=== PATIENT | female | born 1955 | race Caucasian/White ===

== ENCOUNTER 2021-12-03 19:41 | Emergency (ER) | payer MEDICARE, MEDICAID, SELFPAY ==
--- NOTE | ~2021-12-03 | CT_ITS ---
EXAMINATION: CT abdomen pelvis w con DATE: 12/04/2021 00:58 INDICATION: Lower abdominal pain with vaginal bleeding. TECHNIQUE: Computed tomography (CT) of the abdomen and pelvis was performed with 100 cc Omnipaque 300 intravenous contrast. The dose-length product was 1463.97 mGy-cm. Automated exposure control and ite rative reconstruction technique were employed. COMPARISON: None. FINDINGS: Lung bases are unremarkable. No significant pleural or pericardial effusion. Heart size is normal. Mild atherosclerosis. No lymphadenopathy. There is evidence for pelvic floor relaxation. Fatt y infiltration of the liver. The spleen, pancreas, adrenal glands and kidneys are unremarkable. Gallb ladder is contracted. Nonobstructive bowel gas pattern. No evidence for diverticulitis. Mild lumbar s pondylosis. No free air or free fluid. There is laxity of the anterior abdominal wall musculature wit h small fat-containing umbilical hernia. IMPRESSION: 1. No acute abdominal abnormality. Reviewed, dictated and finalized at location A.
[2021-12-03 19:46] VITALS: BP 152/64; PULSE 88; RESP 16; TEMP 36.6; O2SAT 98
[2021-12-03 22:55] VITALS: BP 178/86; PULSE 92; RESP 16; TEMP 37; O2SAT 98
--- NOTE | 2021-12-03 23:07 | ED.GENADULT ---
HPI - General Adult General Chief complaint: Vaginal Bleeding Stated complaint: vag bleed x 1 month Time Seen by Provider: 12/03/21 22:47 History of Present Illness HPI narrative: 66-year-old female presenting to the emergency department for evaluation of vaginal bleeding that has been ongoing for approximately 1 month. Patient has had follow-up with [facility] during the month and has had an outpatient ultrasound. Patient does have additional follow-up scheduled on January [address] Allan. Today the patient was sitting on the toilet and she stated that she felt different patient suspects that she had onset of a panic attack because she felt her breathing increased and she felt very anxious. Patient did have some associated dizziness. Patient reports that the symptoms have begun to improve and she feels back to her baseline. Patient has been passing golf ball sized clots intermittently over the course of the last month. Patient did have some heavier bleeding earlier in the day but states that since arriving to the emergency department that she has no further bleeding. Patient denies any complaints at this time. Related Data Allergies Allergy/AdvReac Type Severity Reaction Status Date / Time No Known Allergies Allergy Mild Verified 12/03/21 22:57 Review of Systems Review of Systems: CONSTITUTIONAL: Denies fever, chills, or sweats. EYES: Denies visual changes, redness, or discharge. ENT: Denies rhinorrhea, congestion, sore throat, or otalgia. CARDIOVASCULAR: Denies chest pain, palpitations, or edema. RESPIRATORY: Denies cough or dyspnea. GASTROINTESTINAL: Denies abdominal pain, nausea, vomiting, or diarrhea. GENITOURINARY: See HPI SKIN: Denies rash or itching. MUSCULOSKELETAL: Denies back pain, joint pain, or myalgia. NEUROLOGIC: Denies headache, numbness, or weakness. PSYCHIATRIC: Resolved panic attack Exam Narrative: APPEARANCE: Well appearing, no pain, no distress, well-nourished. HEAD: normocephalic, atraumatic. EYES: PERRLA/EOMI, conjunctivae clear. NOSE: Normal no drainage NECK: Supple. No adenopathy, no masses. RESPIRATORY: Airway patent, respirations nonlabored. Clear to auscultation bilaterally, no rales, rhonchi, wheezing. CARDIOVASCULAR: Regular rate and rhythm without murmurs rubs or gallops. ABDOMINAL: Soft, nontender, nondistended, normal bowel sounds MUSCULOSKELETAL: Moves all extremities. Strength/ROM intact, No edema, No calf tenderness. NEURO: Alert. Cranial nerves II through XII intact. Grossly intact SKIN: Warm, dry. Normal Color PSYCHIATRIC: Normal affect/mood. Course Course Emergency Course: Patient's vitals are within normal limits. Patient is afebrile with no leukocytosis. Patient's hemoglobin is 11.8. INR is 1.1. CT scan showed no acute abnormality. Patient family review the results of the labs and imaging. Patient was encouraged to continue have close follow-up with [facility]. All question concerns were addressed. Patient was stable at time of discharge from the emergency department. Vital Signs Vital signs: Vital Signs Temperature 97.8 F 12/03/21 19:46 Pulse Rate 88 12/03/21 19:46 Respiratory Rate 16 12/03/21 19:46 Blood Pressure 152/64 H 12/03/21 19:46 Pulse Oximetry 98 12/03/21 19:46 Oxygen Delivery Room Air 12/03/21 19:46 Temperature 98.6 F 12/03/21 22:55 Pulse Rate 92 12/03/21 22:55 Respiratory Rate 16 12/03/21 22:55 Blood Pressure 178/86 H 12/03/21 22:55 Pulse Oximetry 98 12/03/21 22:55 Oxygen Delivery Room Air 12/03/21 19:46 Medical Decision Making Vital Signs Vital Signs: Vital Signs Temperature 97.8 F 12/03/21 19:46 Pulse Rate 88 12/03/21 19:46 Respiratory Rate 16 12/03/21 19:46 Blood Pressure 152/64 H 12/03/21 19:46 Pulse Oximetry 98 12/03/21 19:46 Oxygen Delivery Room Air 12/03/21 19:46 Temperature 98.6 F 12/03/21 22:55 Pulse Rate 92 12/03/21 22:55 Respiratory Rate 16 12/03/21 22:55 Blood Pressure
[2021-12-04 00:18] LABS: Basophils Percent Auto 0.4 % (0.2-1.2); Eosinophils Absolute Auto 0.1 K/mm3 (0-0.3); Eosinophils Percent Auto 1.4 % (0-4.4); Hematocrit 36.8 % (37.0-47.0); Hemoglobin 11.8 g/dL (12.0-15.0); Immature Granulocyte Absolute 0.03 K/mm3 (0.00-0.031); Immature Granulocyte Percent A 0.3 % (0-0.5); Lymphocytes Absolute Auto 2.57 K/mm3 (0.9-3.2); Lymphocytes Percent Auto 25.8 % (18.3-44.2); Mean Corpuscular HGB Conc 32.1 g/dl (32-36); Mean Corpuscular Volume 93.6 fl (80-100); Mean Platelet Volume 10.9 fl (7.4-10.4); Monocytes Absolute Auto 0.7 K/mm3 (0.1-0.6); Monocytes Percent Auto 6.5 % (2.6-8.5); Neutrophils Absolute Auto 6.5 K/mm3 (1.3-6.7); Neutrophils Percent Auto 65.6 % (45.5-73.1); Platelet Count Result 280 k/mm3 (150-375); Red Blood Count 3.93 M/mm3 (4.2-5.4)
[2021-12-04 00:19] LABS: Appearance Urine Clear (Clear); Bilirubin Urine Negative (Negative); Blood Urine Negative (Negative); Color Urine Yellow (Yellow); Glucose Urine UA Negative (Negative); Ketones Urine Trace mg/dL (Negative); Leukocyte Esterase Ur Trace LEU/UL (Negative); Nitrate Urine Negative (Negative); Protein Urine Negative (Negative); Urobilinogen Urine 0.2 mg/dL (<2.0); pH Urine 5.5 (5.0-9.0)
[2021-12-04 00:26] LABS: INR 1.1; Prothrombin Time 13.5 Seconds (11.1-14.7)
[2021-12-04 00:27] LABS: Partial Thromboplastin Time 22.9 SECONDS (22.3-36.8)
[2021-12-04 00:29] LABS: Alanine Aminotransferase 22 U/L (6-35); Albumin Level 4.5 g/dL (3.5-5.1); Alkaline Phosphatase 89 U/L (38-126); Anion Gap 8 mmol/L (8-16); Aspartate Amino Transferase 22 U/L (14-36); Bilirubin,Total 0.4 mg/dL (0.2-1.3); Blood Urea Nitrogen 19 mg/dL (7-17); Calcium 9.1 mg/dL (8.4-10.2); Carbon Dioxide 29 mmol/L (22-30); Chloride 101 mmol/L (98-107); Estimated CRCL calculation 59 ml/min; Estimated Glomerular Filt Rate 38; Glucose 97 mg/dL (65-110); Potassium 3.9 mmol/L (3.4-5.0); Sodium 138 mmol/L (137-145)
[2021-12-04 00:32] LABS: Mucus Urine Rare /lpf; RBC Urine 0-2 /hpf (0-2); Squamous Epithelial Cell Urine Rare /hpf (Few); WBC Urine 0-3 /hpf
[2021-12-04 00:45] LABS: Add Urine Microscopic? YES
[2021-12-04 03:01] VITALS: BP 161/54; PULSE 96; RESP 18; O2SAT 99
== END 2021-12-04 03:03 | disposition home or self-care (01) ==
PROVIDERS: Emergency Provider Emergency Medicine; PCP Family Medicine
DX: N93.9 Abnormal uterine and vaginal bleeding, unspecified (principal)
CPT/HCPCS: 36415; 51701; 74177; 80053; 81001; 85025; 85610; 85730; 86850; 86900; 86901; 99284; Q9967

== ENCOUNTER 2021-12-16 01:29 | Day surgery (SDC) | payer MEDICARE, MEDICAID, SELFPAY ==
[2021-12-10 11:23] VITALS: BMI 71.5
--- NOTE | 2021-12-10 11:40 | PC.NURSE ---
Report to the Outpatient Waiting Room, entrance under the green pavilion located off [facility], at time _1030 on date _12/16/21 . OR Time: 1230___. - You and your visitor will be asked a series of questions to screen for COVID 19 for your protection. - Only one visitor is allowed at this time. - The patient visitor is requested to leave or wait in car when not with patient. - A mask is required within the hospital. Patients may have clear liquids (water, carbonated beverages, clear teas, apple juice) until 3 hours prior to surgery (0930 AM) with a maximum of 20 ounces. - No food from midnight until time of surgery - Infants may have breast milk until 4 hours before surgery, formula 6 hours prior to surgery. - Children will be allowed to drink immediately following surgery. If applicable, please bring a bottle or sippy cup to assist with drinking. Juice, water, soda, and popsicles are readily available. For infants on formula, please bring formula the day of surgery. Pacifiers are allowed. Take the following medications with a SIP of water the morning of surgery: _INHALER, LEVOTHYROXINE_ Medications to discontinue per physician ___ALL VITAMINS AND SUPPLEMENTS 3 DAYS PRIOR TO SURGERY_ Date to take last dose 12/12/21 Please no make-up, nail zambian, hairspray, perfume, deodorant, or body powder the day of surgery. No jewelry (including any body piercings) or valuables the day of surgery, leave them at home. Please take a shower or bath the night before, or the morning of, surgery with an antibacterial soap. Wear comfortable, loose fitting clothing. Children are encouraged to wear pajamas. - Jewelry must be removed prior to entering the operating room. Rings and piercings that are not removed may be cut off. - The hospital will not accept responsibility for valuables. - Please leave all valuables, including medications, at home the day of surgery. If you are going home after surgery, a licensed day haul or farm charter bus driver must drive you home. - NO public transportation without another adult. - We recommend that an adult stay with you for 24 hours following discharge. - We also recommend that you do not drive, make important decision, drink alcoholic beverages, or take any drugs that were not prescribed by your health care provider for at least 24 hours after your discharge time. For Pediatric surgeries, we recommend two adults accompany the child home (only one inside the building at this time). Follow any additional instructions given to you from your surgeon. If you or anyone in your household have experienced Covid symptoms in the past week, please notify your surgeon or the nurse liaison at the phone number below for possible testing. Telephone instructions given to __PT'S DAUGHTER (GARRETT) and asked if any additional questions and then verbalized understanding. Patient advised to call surgeon office or pre surgery nurse liaison [phone] if any additional questions.
[2021-12-16] VITALS (9 sets, daily range): BP systolic 131–187; BP diastolic 63–91; PULSE 72–93; RESP 16–20; TEMP 36.2–37.1; O2SAT 99–100
--- NOTE | 2021-12-16 07:44 | PM.IMHP ---
H&P: HPI History of Present Illness Date/Time: 12/16/21 07:44 Chief Complaint: postmenopausal bleeding Narrative: Jayleen is a postmenopausal 66yo [id number] who presented to clinic for PMB. She reports that she has not stopped bleeding and has continued to have menstrual cycles. For the last couple months the bleeding has severely worsened; filling Depends w/ clots and bright red bleeding. She has been passing some clots as big as a golf ball. She denies any major cramping pains. She had an US at the beginning of the month showing a thickened endometrial strip measuring 9.3mm. She has HTN, arthritis with limited mobility due to morbid obesity, COPD/asthma, and hypothyroidism. Review of Systems Review of Systems: All systems reviewed & are unremarkable except as noted in HPI and below PMFSH Past Medical History Medical History (Updated 12/16/21 @ 07:46 by Tori Chiu MD) 1st MTP arthritis Asthma COPD (chronic obstructive pulmonary disease) Eczema High blood pressure Thyroid disease Social History Social History (Updated 12/09/21 @ 14:56 by Anny Randhawa MA) Smoking status: Never smoker Second hand tobacco smoke exposure: No Alcohol intake: never Substance use: never Substance use type: does not use Living arrangements: with family Additional living arrangements comments: PT LIVES WITH DAUGHTER - GARRETT Gender identity (if verbalized by the patient): Female Spiritual care concerns: No Meds Home Medications and Allergies Home Medications Medication Instructions Recorded Confirmed Type albuterol sulfate 2.5 mg/3 mL 2.5 mg inhalation Q6H 12/09/21 12/10/21 History (0.083 %) solution for nebulization hydrochlorothiazide 25 mg tablet 25 mg PO QAM 12/09/21 12/10/21 History levothyroxine 75 mcg tablet 75 mcg PO DAILY 12/09/21 12/10/21 History meloxicam 15 mg tablet 15 mg PO DAILY 12/09/21 12/10/21 History potassium chloride 10 mEq 10 meq PO DAILY 12/09/21 12/10/21 History capsule,extended release tramadol 50 mg tablet 50 mg PO Q6H PRN Pain 12/09/21 12/10/21 History ascorbic acid (vitamin C) 1,000 mg 1 g PO DAILY 12/10/21 12/10/21 History tablet (Vitamin C) cholecalciferol (vitamin D3) 50 50 mcg PO DAILY 12/10/21 12/10/21 History mcg (2,000 unit) chewable tablet iron 1 tab-cap DAILY 12/10/21 12/10/21 History Allergies Allergy/AdvReac Type Severity Reaction Status Date / Time lidocaine AdvReac Severe Shakiness Verified 12/10/21 11:17 Exam Const: General: cooperative, comfortable and no acute distress Nutritional Appearance: obese morbidly obese Resp: Effort & Inspection: normal respiratory effort GI: GI Palp: No abdominal tenderness and Yes Soft to palpation : Other: deferred to OR Skin: General skin exam: normal color Neuro: General: patient oriented x3 Psych: Appearance: grossly normal Affect: normal affect Attitude: cooperative Assessment and Plan Assessment and plan (1) Postmenopausal bleeding: Code(s): N95.0 - Postmenopausal bleeding Status: Acute Plan - Proceed with hysteroscopy with dilation and curettage - Highly concerned for malignancy in the setting of prolonged and progressively worsening PMB - Risks and benefits explained in detail
--- NOTE | 2021-12-16 11:29 | WPDANESEPPF ---
Anes - Initial Pre Proc Eval Procedure: Operation Date: 12/16/21 12:30 Proposed Procedures p Hysteroscopy with Dilation and Curettage - Tori Chiu MD Date/Time: 12/16/21 11:29 Surgeon: Tori Chiu MD Pre Op Diagnosis: Post Menopausal Bleeding Patient Data Age: 66 Gender: F Height: 1.63 m Weight: 189.09 kg Allergies Allergy/AdvReac Type Severity Reaction Status Date / Time lidocaine AdvReac Severe Shakiness Verified 12/10/21 11:17 Home Medications Medication Instructions Recorded Confirmed Type albuterol sulfate 2.5 mg/3 mL 2.5 mg inhalation Q6H 12/09/21 12/10/21 History (0.083 %) solution for nebulization hydrochlorothiazide 25 mg tablet 25 mg PO QAM 12/09/21 12/10/21 History levothyroxine 75 mcg tablet 75 mcg PO DAILY 12/09/21 12/10/21 History meloxicam 15 mg tablet 15 mg PO DAILY 12/09/21 12/10/21 History potassium chloride 10 mEq 10 meq PO DAILY 12/09/21 12/10/21 History capsule,extended release tramadol 50 mg tablet 50 mg PO Q6H PRN Pain 12/09/21 12/10/21 History ascorbic acid (vitamin C) 1,000 mg 1 g PO DAILY 12/10/21 12/10/21 History tablet (Vitamin C) cholecalciferol (vitamin D3) 50 50 mcg PO DAILY 12/10/21 12/10/21 History mcg (2,000 unit) chewable tablet iron 1 tab-cap DAILY 12/10/21 12/10/21 History Patient hx anesthesia problems: none Family hx anesthesia problems: none Results Review: All pre-operative results and documents have been reviewed as part of the pre-operative evaluation. FOR[facility]LY [facility], [facility] Past Medical History Medical History (Updated 12/16/21 @ 07:46 by Tori Chiu MD) 1st MTP arthritis Asthma COPD (chronic obstructive pulmonary disease) Eczema High blood pressure Thyroid disease Social History Social History (Updated 12/09/21 @ 14:56 by Anny Randhawa MA) Smoking status: Never smoker Second hand tobacco smoke exposure: No Alcohol intake: never Substance use: never Substance use type: does not use Living arrangements: with family Additional living arrangements comments: PT LIVES WITH DAUGHTER - GARRETT Gender identity (if verbalized by the patient): Female Spiritual care concerns: No Anes - Eval Final PreProcedure Day of Procedure 12/16/21 11:29 Patient weight: obese and super morbidly obese Heart: regular rate and rhythm Lungs: clear to auscultation and normal air movement Airway: Mallampati scale class II Neurological: alert and oriented Last oral intake: >/= 8 hours ASA classification: IV Emergent: no Anesthetic plan: proceed Anesthesia type and monitoring: general GIVS Results Review: All pre-operative results and documents have been reviewed as part of the pre-operative evaluation. Informed Consent: The patient's anesthetic plan and its attendant risks and benefits were discussed with the patient/family/POA. Questions were solicited and answers provided to the satisfaction of the patient/family/POA.
[2021-12-16] MEDS: LACTATED RINGERS 1,000 ML 30 ML IV CONT ×2 (11:35→13:23)
[2021-12-16] MEDS: ACETAMINOPHEN 500 MG TABLET 1000 MG PO (11:48)
--- NOTE | 2021-12-16 12:16 | WPDHPUPDATE1 ---
History and Physical Update Update Date/Time: 12/16/21 12:16 History and Physical has been reviewed, including an updated exam of the patient. There are NO changes in the patient's condition. Risks, benefits, and alternatives have been discussed and questions answered. Patient agrees to proceed with procedure.
--- NOTE | 2021-12-16 13:21 | P.OP_ITS ---
Procedure Note - Detailed Date of Procedure 12/16/21 Pre-op Diagnosis Post Menopausal Bleeding Post-op Diagnosis Other (endometrial masses) Procedure Performed Hysteroscopy with biopsy Surgeon Tori Chiu MD Anesthesia General Indications Jayleen is a postmenopausal 66yo [id number] who presented to clinic for PMB. She reports that she has not stopped bleeding and has continued to have menstrual cycles. For the last couple months the bleeding has severely worsened; filling Depends w/ clots and bright red bleeding. She has been passing some clots as big as a golf ball. She denies any major cramping pains. She had an US at the beginning of the month showing a thickened endometrial strip measuring 9.3mm. Findings Large rectocele with long vagina; anterverted uterus, fixed. Uterus with multiple polypoid masses throughout the uterus with thickened tissue, concerning for malignancy. Good hemostasis at end of case. Fluid deficit of 100cc. Description of Procedure Jayleen was taken to the operating room where she was placed under general anesthesia with a LMA. She was then prepped and draped in the usual sterile fashion the dorsal lithotomy position with the legs in low Malcolm stirrups. A time-out was performed and no preoperative antibiotics were indicated. A bivalve speculum was placed in the vagina where a large rectocele was noted as well as a long vagina. A long weighted speculum was then placed posteriorly and a [place] anteriorly and the cervix was then identified. The anterior lip of the cervix was grasped with a single-tooth tenaculum. The uterus was attempted to be sounded and dilated however due to the uterus being fixed and sharped anteverted, I was unable to safely dilate the cervix. Therefore I decided to proceed with diagnostic hysteroscopy (smallest hysteroscope we have). The cervix was visualized normal and the uterus was found to be very anteverted. The posterior weighted speculum was removed and I was able to advanced the hysteroscope into the endometrial cavity. I noted a thickened lining with multiple masses noted throughout the endometrium, 1 fundal and multiple on the lateral chase. I did not feel like I could safely do a curettage based on how anteverted the uterus was. Therefore using the MyoSure I collected shave biopsies from all masses and multiple areas inside the uterus until an adequate sample was obtained. Good hemostasis was noted. All instruments were removed from the vagina. Sponge, lap, instrument, and needle counts were correct at the end the procedure. Patient was awoken from anesthesia and taken recovery in a stable condition with plans of same-day discharge home. Estimated Blood Loss 5 IV Fluids 1,000 Drains No Packing No Pathology Yes Complications No immediate complications Condition Stable Disposition Same day [facility] Billing Surgery - Charge Forward: Surgery Billing
== END 2021-12-16 15:09 | disposition home or self-care (01) ==
PROVIDERS: PCP Family Medicine; Visit Provider Obstetrics & Gynecology
PROC: 0U5B8ZZ Destruction of Endometrium, Via Natural or Artificial Opening Endoscopic (ICD-10-PCS; CPT 58563; principal; 2021-12-16 12:30)
DX: C54.1 Malignant neoplasm of endometrium (principal); N95.0 Postmenopausal bleeding; N81.6 Rectocele; Z79.51 Long term (current) use of inhaled steroids; J44.9 Chronic obstructive pulmonary disease, unspecified; I10 Essential (primary) hypertension; E07.9 Disorder of thyroid, unspecified; E66.01 Morbid (severe) obesity due to excess calories; Z68.45 Body mass index [BMI] 70 or greater, adult
CPT/HCPCS: 58558; 88305; A9270; J1100; J2250; J2405; J2704; J3010; J7030; J7120